=== PATIENT | female | born 1945 | race Caucasian/White ===

== ENCOUNTER → 2016-12-25 | Outpatient (REF) | payer MEDICARE, BC ==
[2016-12-25 20:34] LABS: ALBUMIN 4.4 GM/DL (3.2-5.2); ALBUMIN/GLOBULIN RATIO 1.38 (1.00-1.93); ALKALINE PHOSPHATASE 71 U/L (45-117); ALT/SGPT 29 U/L (12-78); ANION GAP 9 MEQ/L (8-16); AST/SGOT 20 U/L (15-37); BILIRUBIN,TOTAL 0.4 MG/DL (0.2-1.0); BLOOD UREA NITROGEN 16 MG/DL (7-18); CALCIUM LEVEL 9.5 MG/DL (8.8-10.2); CARBON DIOXIDE LEVEL 30 MEQ/L (21-32); CHLORIDE LEVEL 102 MEQ/L (98-107); CHOLESTEROL LEVEL 290 MG/DL (<200); CREATININE FOR GFR 0.67 MG/DL (0.55-1.02); FREE T4 1.16 NG/DL (0.76-1.46); GLOMERULAR FILTRATION RATE > 60.0 (>39); GLUCOSE, FASTING 77 MG/DL (83-110); POTASSIUM SERUM 4.2 MEQ/L (3.5-5.1); SODIUM LEVEL 141 MEQ/L (136-145); TOTAL PROTEIN 7.6 GM/DL (6.4-8.2); TRIGLYCERIDES LEVEL 111 MG/DL (<150)
[2016-12-25 20:43] LABS: MEAN CORPUSCULAR HEMOGLOBIN 31.4 pg (27.0-33.0); MEAN CORPUSCULAR HGB CONC 33.4 g/dl (32.0-36.5); MEAN CORPUSCULAR VOLUME 94.1 fl (80.0-96.0); WHITE BLOOD COUNT 10.1 K/mm3 (4.0-10.0)
== END ==
LOC: M SFHCADAM 16:06
PROVIDERS: ATTEND Family Medicine
DX: F32.9 Major depressive disorder, single episode, unspecified (principal); I11.9 Hypertensive heart disease without heart failure; R00.2 Palpitations; E78.2 Mixed hyperlipidemia
CPT/HCPCS: 80053; 80061; 83735; 84439; 84443; 85027; 93005; G0463

== ENCOUNTER → 2017-09-13 | Outpatient (REF) | payer MEDICARE, BC ==
[2017-09-13 14:32] LABS: MEAN CORPUSCULAR HEMOGLOBIN 31.5 pg (27.0-33.0); MEAN CORPUSCULAR VOLUME 95.7 fl (80.0-96.0); PLATELET COUNT, AUTOMATED 261 10^3/uL (150-450); RED CELL DISTRIBUTION WIDTH 13.9 % (11.5-14.5); WHITE BLOOD COUNT 8.7 10^3/uL (4.0-10.0)
[2017-09-13 14:45] LABS: ALBUMIN 3.8 GM/DL (3.2-5.2); ALBUMIN/GLOBULIN RATIO 1.52 (1.00-1.93); ALKALINE PHOSPHATASE 61 U/L (45-117); ALT/SGPT 30 U/L (12-78); ANION GAP 6 MEQ/L (8-16); AST/SGOT 19 U/L (7-37); BILIRUBIN,TOTAL 0.4 MG/DL (0.2-1.0); BLOOD UREA NITROGEN 16 MG/DL (7-18); CALCIUM LEVEL 9.4 MG/DL (8.8-10.2); CARBON DIOXIDE LEVEL 32 MEQ/L (21-32); CHLORIDE LEVEL 105 MEQ/L (98-107); CHOLESTEROL LEVEL 265 MG/DL (<200); CREATININE FOR GFR 0.72 MG/DL (0.55-1.02); GLOMERULAR FILTRATION RATE > 60.0 (>39); GLUCOSE, FASTING 82 MG/DL (83-110); POTASSIUM SERUM 4.5 MEQ/L (3.5-5.1); SODIUM LEVEL 143 MEQ/L (136-145); TOTAL PROTEIN 6.3 GM/DL (6.4-8.2); TRIGLYCERIDES LEVEL 94 MG/DL (<150)
== END ==
LOC: M SFHCADAM 07:57
PROVIDERS: ATTEND Family Medicine
DX: K21.0 Gastro-esophageal reflux disease with esophagitis (principal); F32.9 Major depressive disorder, single episode, unspecified; I11.9 Hypertensive heart disease without heart failure; E78.2 Mixed hyperlipidemia; E55.9 Vitamin D deficiency, unspecified

== ENCOUNTER → 2017-10-14 | Outpatient (CLI) | payer MEDICARE, BC | LOC: M WHC 12:57 | DX: Z12.31 Encounter for screening mammogram for malignant neoplasm of breast (principal) | CPT/HCPCS: G0202 ==

== ENCOUNTER → 2018-03-31 | Outpatient (REF) | payer MEDICARE, BC ==
[2018-03-31 12:51] LABS: CHOLESTEROL LEVEL 235 MG/DL (<200); CHOLESTEROL RISK RATIO 2.526 (<5); HDL CHOLESTEROL 93 MG/DL (>40); LDL CHOLESTEROL 117.6 MG/DL (<100); NON-HDL-C 142 MG/DL; TRIGLYCERIDES LEVEL 122 MG/DL (<150)
== END ==
LOC: M SFHCADAM 08:13
DX: E78.2 Mixed hyperlipidemia (principal)
CPT/HCPCS: 80061

== ENCOUNTER → 2018-06-02 | Outpatient (CLI) | payer MEDICARE, BC | LOC: M RAD 12:52 | DX: R14.0 Abdominal distension (gaseous) (principal) | CPT/HCPCS: 76856 ==

== ENCOUNTER → 2018-06-03 | Outpatient (CLI) | payer MEDICARE, BC | LOC: M RAD 07:16 | DX: K76.89 Other specified diseases of liver (principal); N28.1 Cyst of kidney, acquired; R14.0 Abdominal distension (gaseous); R14.3 Flatulence | CPT/HCPCS: 76700 ==

== ENCOUNTER → 2018-07-19 | Outpatient (CLI) | payer MEDICARE, BC ==
[~2018-07-19] MED LIST: GASTROGRAFIN SOLUTION 30ML (Q9963) As Ordered; ISOVUE-370 76% 100ML VIAL (Q9967) As Ordered
== END ==
LOC: M RAD 13:24
DX: R10.13 Epigastric pain (principal); R14.0 Abdominal distension (gaseous); R63.4 Abnormal weight loss
CPT/HCPCS: Q9963

== ENCOUNTER → 2018-07-26 | Outpatient (CLI) | payer MEDICARE, BC ==
[~2018-07-26] MED LIST changes: -GASTROGRAFIN SOLUTION 30ML (Q9963) As Ordered
== END ==
LOC: M RAD 09:20
DX: R91.1 Solitary pulmonary nodule (principal)
CPT/HCPCS: Q9967

== ENCOUNTER → 2018-10-03 | Outpatient (REF) | payer MEDICARE, BC ==
[2018-10-03 10:32] LABS: HEMATOCRIT 41.1 % (36.0-47.0); HEMOGLOBIN 13.5 g/dl (12.0-15.5); MEAN CORPUSCULAR HEMOGLOBIN 31.3 pg (27.0-33.0); MEAN CORPUSCULAR HGB CONC 32.8 g/dl (32.0-36.5); MEAN CORPUSCULAR VOLUME 95.1 fl (80.0-96.0); PLATELET COUNT, AUTOMATED 220 10^3/uL (150-450); RED BLOOD COUNT 4.32 10^6/uL (4.00-5.40); WHITE BLOOD COUNT 8.6 10^3/uL (4.0-10.0)
[2018-10-03 10:53] LABS: ALBUMIN 3.7 GM/DL (3.2-5.2); ALT/SGPT 25 U/L (12-78); BILIRUBIN,TOTAL 0.6 MG/DL (0.2-1.0); BLOOD UREA NITROGEN 21 MG/DL (7-18); CALCIUM LEVEL 8.8 MG/DL (8.8-10.2); CARBON DIOXIDE LEVEL 29 MEQ/L (21-32); CHLORIDE LEVEL 103 MEQ/L (98-107); CHOLESTEROL LEVEL 239 MG/DL (<200); CHOLESTEROL RISK RATIO 2.366 (<5); CREATININE FOR GFR 0.64 MG/DL (0.55-1.30); GLOMERULAR FILTRATION RATE > 60.0 (>39); GLUCOSE, FASTING 84 MG/DL (70-100); HDL CHOLESTEROL 101 MG/DL (>40); LDL CHOLESTEROL 127 MG/DL (<100); NON-HDL-C 138 MG/DL; POTASSIUM SERUM 4.2 MEQ/L (3.5-5.1); SODIUM LEVEL 139 MEQ/L (136-145); TOTAL PROTEIN 6.5 GM/DL (6.4-8.2); TRIGLYCERIDES LEVEL 55 MG/DL (<150)
== END ==
LOC: M SFHCADAM 08:17
PROVIDERS: ATTEND Family Medicine
DX: R10.13 Epigastric pain (principal); E78.2 Mixed hyperlipidemia

== ENCOUNTER → 2019-01-11 | Outpatient (CLI) | payer MEDICARE, BC ==
[2019-01-11 12:22] LABS: BLOOD UREA NITROGEN 16 MG/DL (7-18); GLOMERULAR FILTRATION RATE > 60.0 (>39)
== END ==
LOC: M LAB 11:19
PROVIDERS: ATTEND Physician Assistant
DX: R91.1 Solitary pulmonary nodule (principal)

== ENCOUNTER → 2019-01-20 | Outpatient (CLI) | payer MEDICARE, BC ==
[~2019-01-20] MED LIST changes: -ISOVUE-370 76% 100ML VIAL (Q9967) As Ordered; +ISOVUE-370 76% 100ML VIAL (Q9967) As Ordered ONE
--- NOTE | 2019-01-20 12:48 | REP ---
CT CHEST WITH IV CONTRAST: HISTORY: Lower lobe pulmonary nodule. Comparison chest CT study July 26, 2018. Comparison chest x-ray March 02, 2006. The prior chest CT study showed a 4 mm noncalcified nodule in the left lower lobe. 100 mL of intravenous Isovue [address] FINDINGS: There is good opacification of the aorta and pulmonary arterial tree. There is no CT evidence of pulmonary embolus, aortic aneurysm, or dissection. The thoracic aorta is tortuous. Vascular calcifications noted including left coronary artery vascular calcification. There is no evidence of pleural effusion or pericardial effusion. No hilar or mediastinal mass or adenopathy is observed. Mild heterogeneous enlargement right lobe of the thyroid is again seen unchanged. The previously noted 4 mm noncalcified pulmonary nodule in the left lower lobe is again seen and is unchanged. There are two other tiny 2-3 mm nodular opacities, one in the lingula and the other in the left upper lobe. These are visible in retrospect and are unchanged as well. No new pulmonary nodule is appreciated. No infiltrate is seen. There are multiple small hepatic cysts again noted unchanged. IMPRESSION: Stable small pulmonary nodules. Repeat CT study recommended 1 year if the patient is considered at increased risk of lung carcinoma. Electronically Signed by Evan Jeffries MD 01/20/2019 01:39 P
== END ==
LOC: M RAD 09:25
PROVIDERS: ATTEND Physician Assistant
DX: R91.1 Solitary pulmonary nodule (principal)
CPT/HCPCS: 71260; Q9967

== ENCOUNTER → 2019-03-16 | Outpatient (REF) | payer MEDICARE, BC ==
[2019-03-16 13:54] LABS: CHOLESTEROL RISK RATIO 3.011 (<5)
== END ==
LOC: M SFHCADAM 08:03
PROVIDERS: ATTEND Family Medicine
DX: E78.2 Mixed hyperlipidemia (principal)

== ENCOUNTER → 2019-04-17 | Outpatient (CLI) | payer MEDICARE, BC ==
--- NOTE | 2019-04-17 14:25 | REPMRS ---
Patient History The patient states she has not had a clinical breast exam in over a year. Patient is postmenopausal and has history of squamous cell skin cancer at age 51. Family history of breast cancer at age 68 in mother, breast cancer at age 57 in sister, prostate cancer at age 50 or over in brother, prostate cancer at age 45 in son, prostate cancer at age 50 or over in father, breast cancer at age 50 or over in maternal aunt, prostate cancer at age 50 or over in brother. Taking unspecified hormones for 19 years. 3D TOMOSYNTHESIS WAS PERFORMED. [facility] lifetime risk for breast cancer is 10.5%. Digital Woman Screen Mammo: April 17, 2019 - Exam #: [id number] Bilateral CC and MLO view(s) were taken. Technologist: Faustina Ortiz, Technologist Prior study comparison: October 14, 2017, digital woman screen mammo performed at [facility]. August 26, 2016, digital woman screen mammo performed at [facility]. FINDINGS: There are scattered fibroglandular densities. There has been no change in the appearance of the mammogram from the prior studies. There is a mild amount of residual fibroglandular tissue which is fairly symmetric. There is no interval development of dominant mass, architectural distortion, or clustered microcalcification suggestive of malignancy. Assessment: BI-RADS/ACR category 1 mammogram. Negative Mammogram. Recommendation Routine screening mammogram in 1 year (for women over age 40). This mammogram was interpreted with the aid of an FDA-approved computer-aided dectection system. Electronically Signed By: Maninder Conrad MD 04/17/19 [id number]
== END ==
LOC: M WHC 13:19
PROVIDERS: ATTEND Family Medicine
DX: Z12.31 Encounter for screening mammogram for malignant neoplasm of breast (principal); Z78.0 Asymptomatic menopausal state; Z85.828 Personal history of other malignant neoplasm of skin; Z80.3 Family history of malignant neoplasm of breast; Z79.818 Long term (current) use of other agents affecting estrogen receptors and estrogen levels

== ENCOUNTER → 2019-09-19 | Outpatient (REF) | payer MEDICARE, BC ==
[2019-09-19 13:14] LABS: ALBUMIN 3.6 GM/DL (3.2-5.2); ALT/SGPT 38 U/L (12-78); BILIRUBIN,TOTAL 0.9 MG/DL (0.2-1.0); BLOOD UREA NITROGEN 17 MG/DL (7-18); CALCIUM LEVEL 9.3 MG/DL (8.8-10.2); CARBON DIOXIDE LEVEL 29 MEQ/L (21-32); CHLORIDE LEVEL 105 MEQ/L (98-107); CHOLESTEROL LEVEL 246 MG/DL (<200); CHOLESTEROL RISK RATIO 2.963 (<5); CREATININE FOR GFR 0.64 MG/DL (0.55-1.30); FREE T4 0.96 NG/DL (0.76-1.46); GLOMERULAR FILTRATION RATE > 60.0 (>39); GLUCOSE, FASTING 72 MG/DL (70-100); HDL CHOLESTEROL 83 MG/DL (>40); LDL CHOLESTEROL 135 MG/DL (<100); NON-HDL-C 163 MG/DL; POTASSIUM SERUM 4.5 MEQ/L (3.5-5.1); SODIUM LEVEL 142 MEQ/L (136-145); TOTAL 25(OH) VITAMIN D 52.4 NG/ML (30.0-100.0); TOTAL PROTEIN 6.6 GM/DL (6.4-8.2); TRIGLYCERIDES LEVEL 141 MG/DL (<150)
== END ==
LOC: M SFHCADAM 08:20
PROVIDERS: ATTEND Family Medicine
DX: E78.2 Mixed hyperlipidemia (principal); E55.9 Vitamin D deficiency, unspecified

== ENCOUNTER → 2019-10-05 | Outpatient (CLI) | payer MEDICARE, BC ==
--- NOTE | 2019-10-05 19:08 | REP ---
Urinary tract sonogram: History: Renal cyst on CT. Comparison: Comparison CT study July 19, 2018. Findings: Scanning at the level of the urinary bladder shows no abnormality. Renal cortical echogenicity pattern is normal bilaterally and contours are smooth. There is no evidence of hydronephrosis, mass, or calculus in either kidney. The right kidney measures 10.9 x 5.6 x 5.1 cm. Left renal dimensions are 11.1 x 5.3 x 6.3 cm. There is a cyst in the lower pole left kidney measuring 3.8 x 3.4 x 3.4 cm as seen on the comparison CT study. Impression: 3.8 cm simple cyst lower pole left kidney. Otherwise negative urinary tract sonography. Electronically Signed by Evan Jeffries MD 10/05/2019 03:56 P
== END ==
LOC: M RAD 13:49
PROVIDERS: ATTEND Family Medicine
DX: N28.1 Cyst of kidney, acquired (principal)

== ENCOUNTER → 2019-10-24 | Outpatient (CLI) | payer MEDICARE, BC ==
--- NOTE | 2019-10-26 13:21 | DEXA ---
AP SPINE L1 - L4 0.889 -2.5 -0.7 LT FEMUR TOTAL 0.856 -1.2 0.6 LT NECK 0.713 -2.3 -0.4 RT FEMUR TOTAL 0.879 -1.0 0.7 RT NECK 0.749 -2.1 -0.1 TOTAL BODY TOTAL OTHER COMMENTS: There is low bone density of the hips. There is osteoporosis of the spine. The density of the spine has decreased 8.4% since the initial exam on 03/04/1999. The spine density has decreased 6.1% since the most recent exam on 06/11/2014. The density of the left hip has decreased 18.6% since the initial exam on 03/04/1999. The density of the left hip has decreased 7.1% since the most recent exam on 06/11/2014. The density of the right hip has decreased 14.2% since the initial exam on 03/04/1999. The density of the right hip has decreased 3.9% since the most recent exam on 06/11/2014. FOLLOW-UP: Recommendation for the next bone density exam: 2 years. PIYUSH
== END ==
LOC: M WHC 09:51
PROVIDERS: ATTEND Family Medicine
DX: M81.0 Age-related osteoporosis without current pathological fracture (principal)

== ENCOUNTER → 2020-03-14 | Outpatient (CLI) | payer MEDICARE, BC ==
[2020-03-14 09:29] LABS: BLOOD UREA NITROGEN 19 MG/DL (7-18); CREATININE FOR GFR 0.68 MG/DL (0.55-1.30); GLOMERULAR FILTRATION RATE > 60.0 (>39)
== END ==
LOC: M LAB 08:30
PROVIDERS: ATTEND Physician Assistant
DX: R91.1 Solitary pulmonary nodule (principal)

== ENCOUNTER → 2020-03-14 | Outpatient (CLI) | payer MEDICARE, BC ==
[2020-03-14 09:29] LABS: BLOOD UREA NITROGEN 20 MG/DL (7-18); CREATININE FOR GFR 0.69 MG/DL (0.55-1.30); GLOMERULAR FILTRATION RATE > 60.0 (>39)
== END ==
LOC: M LAB 08:25
PROVIDERS: ATTEND Physician Assistant Surgical
DX: Z00.00 Encounter for general adult medical examination without abnormal findings (principal)

== ENCOUNTER → 2020-03-18 | Outpatient (CLI) | payer MEDICARE, BC ==
[~2020-03-18] MED LIST changes: -ISOVUE-370 76% 100ML VIAL (Q9967) As Ordered ONE; +ISOVUE-370 76% 100ML VIAL As Ordered ONE
--- NOTE | 2020-03-18 15:24 | REP ---
REASON: Followup pulmonary nodule. All priors were reviewed, the latest of which is dated 01/20/2019. CONTRAST: 100 mL Isovue 370. The mediastinum and pulmonary hilar are unchanged. The imaged upper abdomen and imaged osseous structures are unchanged. Evaluation of the lung field shows stable and lingular left lower lobe nodules. No new abnormal nodules, masses or opacities have developed. IMPRESSION: Stable CT examination of the chest. Yearly CT screening examination of the lungs is recommended provided the patient's risk factors remain high. Electronically Signed by Montez Hernández DO 03/18/2020 05:13 P
== END ==
LOC: M RAD 13:18
PROVIDERS: ATTEND Internal Medicine Gastroenterology
DX: R91.8 Other nonspecific abnormal finding of lung field (principal)
CPT/HCPCS: 71260; Q9967

== ENCOUNTER → 2020-06-26 | Outpatient (CLI) | payer MEDICARE, BC ==
--- NOTE | 2020-06-26 15:15 | REPMRS ---
Patient History The patient states she has not had a clinical breast exam in over a year. Family history of breast cancer at age 68 in mother, breast cancer at age 57 in sister, prostate cancer at age 50 or over in brother, prostate cancer at age 45 in son, prostate cancer at age 50 or over in father, breast cancer at age 50 or over in maternal aunt, prostate cancer at age 50 or over in brother. Taking unspecified hormones for 19 years. 3D TOMOSYNTHESIS WAS PERFORMED. The [facility] lifetime risk for breast cancer is 9.6%. VOLPARA DENSITY B. Digital Woman Screen Mammo: June 26, 2020 - Exam #: [id number] Bilateral CC and MLO view(s) were taken. Technologist: Seema Boneologist Prior study comparison: April 17, 2019, bilateral digital woman screen mammo performed at [facility]. October 14, 2017, digital woman screen mammo performed at [facility]. FINDINGS: There are scattered fibroglandular densities. There has been no change in the appearance of the mammogram from the prior studies. There is a mild amount of residual fibroglandular tissue which is fairly symmetric. There is no interval development of dominant mass, architectural distortion, or clustered microcalcification suggestive of malignancy. Assessment: BI-RADS/ACR category 1 mammogram. Negative Mammogram. Recommendation Routine screening mammogram in 1 year (for women over age 40). This mammogram was interpreted with the aid of an FDA-approved computer-aided dectection system. Electronically Signed By: Maninder Conrad MD 06/26/20 [id number]
== END ==
LOC: M WHC 13:26
PROVIDERS: ATTEND Family Medicine
DX: Z12.31 Encounter for screening mammogram for malignant neoplasm of breast (principal)

== ENCOUNTER → 2020-10-23 | Outpatient (REF) | payer MEDICARE, BC ==
[2020-10-23 12:56] LABS: HEMATOCRIT 46.7 % (36.0-47.0); HEMOGLOBIN 15.3 g/dl (12.0-15.5); MEAN CORPUSCULAR HEMOGLOBIN 31.4 pg (27.0-33.0); MEAN CORPUSCULAR HGB CONC 32.8 g/dl (32.0-36.5); MEAN CORPUSCULAR VOLUME 95.9 fl (80.0-96.0); PLATELET COUNT, AUTOMATED 263 10^3/uL (150-450); RED BLOOD COUNT 4.87 10^6/uL (4.00-5.40); WHITE BLOOD COUNT 8.7 10^3/uL (4.0-10.0)
[2020-10-23 13:34] LABS: ALBUMIN 4.1 GM/DL (3.2-5.2); ALT/SGPT 30 U/L (12-78); BILIRUBIN,TOTAL 0.4 MG/DL (0.2-1.0); BLOOD UREA NITROGEN 23 MG/DL (7-18); CALCIUM LEVEL 9.4 MG/DL (8.8-10.2); CARBON DIOXIDE LEVEL 30 MEQ/L (21-32); CHLORIDE LEVEL 108 MEQ/L (98-107); CHOLESTEROL LEVEL 265 MG/DL (<200); CHOLESTEROL RISK RATIO 2.789 (<5); CREATININE FOR GFR 0.67 MG/DL (0.55-1.30); FREE T4 1.05 NG/DL (0.76-1.46); GLOMERULAR FILTRATION RATE > 60.0 (>39); GLUCOSE, FASTING 78 MG/DL (70-100); HDL CHOLESTEROL 95 MG/DL (>40); LDL CHOLESTEROL 144 MG/DL (<100); NON-HDL-C 170 MG/DL; POTASSIUM SERUM 4.9 MEQ/L (3.5-5.1); SODIUM LEVEL 142 MEQ/L (136-145); TOTAL PROTEIN 6.8 GM/DL (6.4-8.2); TRIGLYCERIDES LEVEL 129 MG/DL (<150)
[2020-10-23 13:37] LABS: TOTAL 25(OH) VITAMIN D 57.8 NG/ML (30.0-100.0)
== END ==
LOC: M SFHCADAM 08:08
PROVIDERS: ATTEND Family Medicine
DX: I49.9 Cardiac arrhythmia, unspecified (principal); E78.2 Mixed hyperlipidemia; E55.9 Vitamin D deficiency, unspecified

== ENCOUNTER → 2020-11-07 | Outpatient (REF) | payer MEDICARE, BC ==
[2020-11-07 13:03] LABS: APPEARANCE, URINE CLEAR (CLEAR); BACTERIA, URINE AUTO NEGATIVE (NEGATIVE); BILIRUBIN, URINE AUTO NEGATIVE (NEGATIVE); BLOOD, URINE BLOOD NEGATIVE (NEGATIVE); COLOR, URINE STRAW (YELLOW); GLUCOSE, URINE (UA) AUTO NEGATIVE (NEGATIVE); KETONE, URINE AUTO NEGATIVE (NEGATIVE); LEUKOCYTE ESTERASE, URINE AUTO 2+ (NEGATIVE); NITRITE, URINE AUTO NEGATIVE (NEGATIVE); PROTEIN, URINE AUTO NEGATIVE (NEGATIVE); RBC, URINE AUTO 1 /HPF (0-3); SPECIFIC GRAVITY URINE AUTO 1.006 (1.002-1.035); SQUAMOUS EPITHELIAL CELL UR AU 1 /HPF (0-6); UROBILINOGEN, URINE AUTO 0.2 mg/dL (0.0-2.0); WBC, URINE AUTO 5 /HPF (0-3)
[2020-11-07 13:30] LABS: BLOOD UREA NITROGEN 26 MG/DL (7-18); CALCIUM LEVEL 9.5 MG/DL (8.8-10.2); CARBON DIOXIDE LEVEL 31 MEQ/L (21-32); CHLORIDE LEVEL 106 MEQ/L (98-107); CREATININE FOR GFR 0.69 MG/DL (0.55-1.30); GLOMERULAR FILTRATION RATE > 60.0 (>39); GLUCOSE, FASTING 70 MG/DL (70-100); POTASSIUM SERUM 4.9 MEQ/L (3.5-5.1); SODIUM LEVEL 142 MEQ/L (136-145)
[2020-11-07 13:38] LABS: CORTISOL AM 9.4 UG/DL (4.3-22.4)
== END ==
LOC: M SFHCADAM 07:46
PROVIDERS: ATTEND Family Medicine
DX: E27.8 Other specified disorders of adrenal gland (principal); M81.0 Age-related osteoporosis without current pathological fracture; R91.1 Solitary pulmonary nodule; R39.15 Urgency of urination

== ENCOUNTER → 2021-02-10 | Outpatient (REF) | payer MEDICARE, BC ==
[2021-02-10 18:05] LABS: BLOOD UREA NITROGEN 24 MG/DL (7-18); CALCIUM LEVEL 10.2 MG/DL (8.8-10.2); CARBON DIOXIDE LEVEL 30 MEQ/L (21-32); CHLORIDE LEVEL 100 MEQ/L (98-107); CREATININE FOR GFR 0.79 MG/DL (0.55-1.30); GLOMERULAR FILTRATION RATE > 60.0 (>39); GLUCOSE, FASTING 73 MG/DL (70-100); POTASSIUM SERUM 4.7 MEQ/L (3.5-5.1); SODIUM LEVEL 137 MEQ/L (136-145)
== END ==
LOC: M SFHCADAM 13:12
PROVIDERS: ATTEND Family Medicine
DX: I11.9 Hypertensive heart disease without heart failure (principal)

== ENCOUNTER → 2021-05-08 | Outpatient (CLI) | payer MEDICARE, BC ==
[2021-05-08 13:24] LABS: BLOOD UREA NITROGEN 18 MG/DL (7-18); CALCIUM LEVEL 9.6 MG/DL (8.8-10.2); CARBON DIOXIDE LEVEL 27 MEQ/L (21-32); CHLORIDE LEVEL 102 MEQ/L (98-107); CREATININE FOR GFR 0.73 MG/DL (0.55-1.30); GLOMERULAR FILTRATION RATE > 60.0 (>39); GLUCOSE, FASTING 82 MG/DL (70-100); POTASSIUM SERUM 4.4 MEQ/L (3.5-5.1); SODIUM LEVEL 137 MEQ/L (136-145)
== END ==
LOC: M LAB 11:46
PROVIDERS: ATTEND Family Medicine
DX: I11.9 Hypertensive heart disease without heart failure (principal)

== ENCOUNTER → 2021-05-12 | Outpatient (CLI) | payer MEDICARE, BC ==
--- NOTE | 2021-05-12 16:50 | REP ---
INDICATION: LUNG NODULE. COMPARISON: 03/18/2020, 01/20/2019 TECHNIQUE: Bolus of 75 mL Isovue 370 scanning through the chest with both coronal and sagittal reconstructions provided. FINDINGS: The lung zaragoza are well inflated. A tiny left lower lobe left upper lobe and lingular nodules are unchanged from the previous 2 studies. Minor dependent atelectatic changes are seen. The right lung shows no definite nodules or masses no calcified pleural plaque, pleural based mass, acute infiltrate or pneumothorax. Heart not enlarged. Some scattered low densities in the liver again noted and unchanged consistent with small a P[place] cysts. No biliary dilatation. That portion of gallbladder, pancreas, the spleen and adrenal glands were unremarkable. Upper poles kidneys intact stomach with small hiatal hernia. Heart not grossly enlarged. The aorta is calcified at the arch but without aneurysm. A few scattered subcentimeter nodes in the mediastinum, hilar regions, axilla and supraclavicular region, stable. There are no compression deformities in the spine. Visualized clavicles, ribs, shoulders and paraspinal regions are unremarkable. IMPRESSION: 1. Stable CT chest with multiple small left pulmonary nodules. The patient is at risk for development of lung carcinoma annual lung CT would be recommended. 2. Some underlying COPD and fibrosis, stable. 3. The aorta is without aneurysm or dissection the main, right and left pulmonary arteries are without filling defects in the mediastinum. Small hiatal hernia noted. 4. No mediastinal or hilar adenopathy. No axillary supraclavicular mass. Upper abdomen shows only scattered hepatic cysts but is otherwise unremarkable. <Electronically signed by José Miguel Murray > 05/12/21 [id number]
== END ==
LOC: M RAD 14:46
PROVIDERS: ATTEND Family Medicine
DX: R91.1 Solitary pulmonary nodule (principal)
CPT/HCPCS: 71260; Q9967

== ENCOUNTER 2021-06-30 14:43 | Outpatient (CLI) | payer MEDICARE, BC ==
[~2021-06-30] VITALS: Ht 149.9 cm; Wt 74.4 kg
[2021-06-30] MEDS ORDERED: ZOLEDRONIC ACID 5 MG in IV 1 EA IV ONE (15:00)
[2021-06-30 15:26] VITALS: BP 129/78
[2021-06-30 15:45] VITALS: BP 155/86
== END 2021-06-30 15:45 | disposition home or self-care (01) ==
LOC: M INFU 14:43
PROVIDERS: ATTEND Family Medicine
DX: M81.0 Age-related osteoporosis without current pathological fracture (principal); Z88.0 Allergy status to penicillin; Z88.1 Allergy status to other antibiotic agents
CPT/HCPCS: 96365; J3489

== ENCOUNTER → 2021-08-20 | Outpatient (CLI) | payer MEDICARE, BC ==
--- NOTE | 2021-08-20 14:09 | REPMRS ---
Patient History The patient states she has not had a clinical breast exam in over a year. Family history of breast cancer at age 68 in mother, breast cancer at age 57 in sister, prostate cancer at age 50 or over in brother, prostate cancer at age 45 in son, prostate cancer at age 50 or over in father, breast cancer at age 50 or over in maternal aunt, prostate cancer at age 50 or over in brother. Taking unspecified hormones for 19 years. Tomosynthesis is performed. Volpara breast density is b. [facility] lifetime risk of breast cancer 8.7%. Patient states no breast complaints today. Patient has signed MRS History Sheet. Digital Woman Screen Mammo: August 20, 2021 - Exam #: [id number] Bilateral CC and MLO view(s) were taken. Technologist: Seema Boneologist Prior study comparison: June 26, 2020, bilateral digital woman screen mammo performed at [facility]. April 17, 2019, bilateral digital woman screen mammo performed at [facility]. FINDINGS: There are scattered fibroglandular densities. There has been no change in the appearance of the mammogram from the prior studies. There is a mild amount of residual fibroglandular tissue which is fairly symmetric. There is no interval development of dominant mass, architectural distortion, or clustered microcalcification suggestive of malignancy. Assessment: BI-RADS/ACR category 1 mammogram. Negative Mammogram. Recommendation Routine screening mammogram in 1 year (for women over age 40). This mammogram was interpreted with the aid of an FDA-approved computer-aided dectection system. Electronically Signed By: Maninder Conrad MD 08/20/21 [id number]
== END ==
LOC: M WHC 11:28
PROVIDERS: ATTEND Family Medicine
DX: Z12.31 Encounter for screening mammogram for malignant neoplasm of breast (principal)

== ENCOUNTER → 2021-10-22 | Outpatient (REF) | payer MEDICARE, BC ==
[2021-10-22 12:34] LABS: HEMATOCRIT 46.6 % (36.0-47.0); HEMOGLOBIN 15.2 g/dl (12.0-15.5); MEAN CORPUSCULAR HEMOGLOBIN 31.5 pg (27.0-33.0); MEAN CORPUSCULAR HGB CONC 32.6 g/dl (32.0-36.5); MEAN CORPUSCULAR VOLUME 96.7 fl (80.0-96.0); PLATELET COUNT, AUTOMATED 242 10^3/uL (150-450); RED BLOOD COUNT 4.82 10^6/uL (4.00-5.40); WHITE BLOOD COUNT 9.2 10^3/uL (4.0-10.0)
[2021-10-22 13:39] LABS: ALT/SGPT 33 U/L (12-78); BILIRUBIN,TOTAL 0.4 MG/DL (0.2-1.0); BLOOD UREA NITROGEN 19 MG/DL (7-18); CALCIUM LEVEL 8.9 MG/DL (8.8-10.2); CARBON DIOXIDE LEVEL 30 MEQ/L (21-32); CHLORIDE LEVEL 103 MEQ/L (98-107); CHOLESTEROL LEVEL 235 MG/DL (<200); CREATININE FOR GFR 0.77 MG/DL (0.55-1.30); GLOMERULAR FILTRATION RATE > 60.0 (>39); GLUCOSE, FASTING 78 MG/DL (70-100); HDL CHOLESTEROL 92 MG/DL (>40); POTASSIUM SERUM 4.4 MEQ/L (3.5-5.1); SODIUM LEVEL 137 MEQ/L (136-145); TRIGLYCERIDES LEVEL 120 MG/DL (<150)
[2021-10-22 13:40] LABS: ALBUMIN 3.7 GM/DL (3.2-5.2); CHOLESTEROL RISK RATIO 2.554 (<5); FREE T4 1.07 NG/DL (0.76-1.46); LDL CHOLESTEROL 119 MG/DL (<100); NON-HDL-C 143 MG/DL; TOTAL 25(OH) VITAMIN D 52.1 NG/ML (30.0-100.0); TOTAL PROTEIN 6.6 GM/DL (6.4-8.2)
== END ==
LOC: M SFHCADAM 08:11
PROVIDERS: ATTEND Family Medicine
DX: E78.2 Mixed hyperlipidemia (principal); F32.9 Major depressive disorder, single episode, unspecified; M81.0 Age-related osteoporosis without current pathological fracture

== ENCOUNTER → 2022-05-15 | Outpatient (CLI) | payer MEDICARE, BC | LOC: M RAD 10:08 | PROVIDERS: ATTEND Family Medicine | DX: Z12.2 Encounter for screening for malignant neoplasm of respiratory organs (principal); R91.8 Other nonspecific abnormal finding of lung field ==

== ENCOUNTER → 2022-06-25 | Outpatient (REF) | payer MEDICARE, BC ==
[2022-06-25 14:03] LABS: BLOOD UREA NITROGEN 20 MG/DL (7-18); CALCIUM LEVEL 9.5 MG/DL (8.8-10.2); CARBON DIOXIDE LEVEL 25 MEQ/L (21-32); CHLORIDE LEVEL 105 MEQ/L (98-107); CREATININE FOR GFR 0.77 MG/DL (0.55-1.30); GLOMERULAR FILTRATION RATE > 60.0 (>39); GLUCOSE, FASTING 79 MG/DL (70-100); POTASSIUM SERUM 4.3 MEQ/L (3.5-5.1); SODIUM LEVEL 136 MEQ/L (136-145)
== END ==
LOC: M SFHCADAM 09:34
PROVIDERS: ATTEND Family Medicine
DX: I11.9 Hypertensive heart disease without heart failure (principal)

== ENCOUNTER 2022-06-30 14:58 | Outpatient (CLI) | payer MEDICARE, BC ==
[~2022-06-30] VITALS: Ht 149.9 cm; Wt 73.6 kg
[2022-06-30] MEDS ORDERED: ZOLEDRONIC ACID 5 MG in IV 1 EA IV ONE (15:00)
[2022-06-30 15:11] VITALS: BP 160/73
[2022-06-30 15:46] VITALS: BP 138/79
== END 2022-06-30 16:00 | disposition home or self-care (01) ==
LOC: M INFU 14:58
PROVIDERS: ATTEND Family Medicine
DX: M81.0 Age-related osteoporosis without current pathological fracture (principal); Z88.0 Allergy status to penicillin; Z88.8 Allergy status to other drugs, medicaments and biological substances
CPT/HCPCS: 96413; J3489

== ENCOUNTER → 2022-08-07 | Outpatient (REF) | payer MEDICARE, BC | LOC: M LAB REF 19:57 | PROVIDERS: ATTEND Internal Medicine | DX: R10.812 Left upper quadrant abdominal tenderness (principal) ==

== ENCOUNTER → 2022-08-07 | Outpatient (CLI) | payer MEDICARE, BC | LOC: M WUC 15:01 | PROVIDERS: ATTEND Student in an Organized Health Care Education/Training Program | DX: R10.812 Left upper quadrant abdominal tenderness (principal) ==

== ENCOUNTER → 2022-10-27 | Outpatient (REF) | payer MEDICARE, BC ==
[2022-10-27 14:00] LABS: HEMOGLOBIN 15.3 g/dl (12.0-15.5); MEAN CORPUSCULAR HEMOGLOBIN 31.3 pg (27.0-33.0); MEAN CORPUSCULAR HGB CONC 32.6 g/dl (32.0-36.5); MEAN CORPUSCULAR VOLUME 96.1 fl (80.0-96.0); PLATELET COUNT, AUTOMATED 258 10^3/uL (150-450); RED BLOOD COUNT 4.89 10^6/uL (4.00-5.40); WHITE BLOOD COUNT 9.6 10^3/uL (4.0-10.0)
[2022-10-27 14:23] LABS: BLOOD UREA NITROGEN 25 MG/DL (9-23); CALCIUM LEVEL 9.7 MG/DL (8.3-10.6); CARBON DIOXIDE LEVEL 30 MMOL/L (20-31); CHLORIDE LEVEL 101 MMOL/L (98-107); CREATININE FOR GFR 0.78 MG/DL (0.55-1.30); GLOMERULAR FILTRATION RATE > 60.0 (>39); GLUCOSE, FASTING 78 MG/DL (74-106); POTASSIUM SERUM 4.7 MMOL/L (3.5-5.1); SODIUM LEVEL 137 MMOL/L (136-145); VITAMIN B12 LEVEL 647 PG/ML (211-911)
[2022-10-27 14:25] LABS: FOLATE > 24.00 NG/ML (>5.4)
== END ==
LOC: M SFHCADAM 07:57
PROVIDERS: ATTEND Family Medicine
DX: H81.09 Meniere's disease, unspecified ear (principal)

== ENCOUNTER → 2022-11-09 | Outpatient (CLI) | payer MEDICARE, BC | LOC: M WHC 10:42 | PROVIDERS: ATTEND Family Medicine | DX: Z12.31 Encounter for screening mammogram for malignant neoplasm of breast (principal) ==

== ENCOUNTER → 2023-04-28 | Outpatient (REF) | payer MEDICARE, BC ==
[2023-04-28 13:33] LABS: HEMATOCRIT 45.7 % (36.0-47.0); HEMOGLOBIN 15.2 g/dl (12.0-15.5); MEAN CORPUSCULAR HEMOGLOBIN 31.4 pg (27.0-33.0); MEAN CORPUSCULAR HGB CONC 33.3 g/dl (32.0-36.5); MEAN CORPUSCULAR VOLUME 94.4 fl (80.0-96.0); PLATELET COUNT, AUTOMATED 284 10^3/uL (150-450); RED BLOOD COUNT 4.84 10^6/uL (4.00-5.40)
[2023-04-28 13:34] LABS: ALBUMIN 3.8 G/DL (3.2-5.2); ALKALINE PHOSPHATASE 68 U/L (46-116); ALT/SGPT 14 U/L (7.0-40); AST/SGOT 23 U/L (<34); BILIRUBIN,TOTAL 0.6 MG/DL (0.3-1.2); BLOOD UREA NITROGEN 20 MG/DL (9-23); CALCIUM LEVEL 9.3 MG/DL (8.3-10.6); CARBON DIOXIDE LEVEL 28 MMOL/L (20-31); CHLORIDE LEVEL 105 MMOL/L (98-107); CHOLESTEROL LEVEL 233 MG/DL (<200); CHOLESTEROL RISK RATIO 3.16 (<5); CREATININE FOR GFR 0.67 MG/DL (0.55-1.30); GLOMERULAR FILTRATION RATE > 60.0 (>39); GLUCOSE, FASTING 81 MG/DL (74-106); HDL CHOLESTEROL 73.6 MG/DL (>40); LDL CHOLESTEROL 136.6 MG/DL (<100); NON-HDL-C 159.4 MG/DL; POTASSIUM SERUM 4.5 MMOL/L (3.5-5.1); SODIUM LEVEL 139 MMOL/L (136-145); TOTAL PROTEIN 6.4 G/DL (5.7-8.2); TRIGLYCERIDES LEVEL 114 MG/DL (<150)
[2023-04-28 13:36] LABS: FREE T4 1.05 NG/DL (0.89-1.76); THYROID STIMULATING HORMONE 2.059 uIU/ML (0.55-4.78)
[2023-04-28 13:37] LABS: TOTAL 25(OH) VITAMIN D 67.3 NG/ML (20.0-100.0)
== END ==
LOC: M SFHCADAM 08:02
PROVIDERS: ATTEND Family Medicine
DX: E78.2 Mixed hyperlipidemia (principal); F32.9 Major depressive disorder, single episode, unspecified; M81.0 Age-related osteoporosis without current pathological fracture

== ENCOUNTER → 2023-05-25 | Outpatient (CLI) | payer MEDICARE, BC | LOC: M RAD 13:25 | PROVIDERS: ATTEND Family Medicine | DX: Z12.2 Encounter for screening for malignant neoplasm of respiratory organs (principal); F17.211 Nicotine dependence, cigarettes, in remission ==

== ENCOUNTER → 2023-08-26 | Outpatient (REF) | payer MEDICARE, BC ==
[2023-08-26 14:10] LABS: ALBUMIN 3.8 G/DL (3.2-5.2); ALKALINE PHOSPHATASE 56 U/L (46-116); ALT/SGPT 29 U/L (7.0-40); AST/SGOT 20 U/L (<34); BILIRUBIN,TOTAL 0.5 MG/DL (0.3-1.2); BLOOD UREA NITROGEN 21 MG/DL (9-23); CALCIUM LEVEL 9.5 MG/DL (8.3-10.6); CARBON DIOXIDE LEVEL 28 MMOL/L (20-31); CHLORIDE LEVEL 104 MMOL/L (98-107); CHOLESTEROL LEVEL 216 MG/DL (<200); CHOLESTEROL RISK RATIO 2.71 (<5); CREATININE FOR GFR 0.69 MG/DL (0.55-1.30); GLOMERULAR FILTRATION RATE > 60.0 (>39); GLUCOSE, FASTING 86 MG/DL (74-106); HDL CHOLESTEROL 79.6 MG/DL (>40); LDL CHOLESTEROL 111.2 MG/DL (<100); NON-HDL-C 136.4 MG/DL; POTASSIUM SERUM 4.3 MMOL/L (3.5-5.1); SODIUM LEVEL 140 MMOL/L (136-145); TOTAL PROTEIN 6.6 G/DL (5.7-8.2); TRIGLYCERIDES LEVEL 126 MG/DL (<150)
== END ==
LOC: M SFHCADAM 10:38
PROVIDERS: ATTEND Family Medicine
DX: E78.2 Mixed hyperlipidemia (principal)

== ENCOUNTER 2023-08-30 15:15 | Outpatient (CLI) | payer MEDICARE, BC ==
[~2023-08-30] VITALS: Ht 149.9 cm; Wt 72.7 kg
[2023-08-30 15:25] VITALS: BP 150/88; O2SAT 96
[2023-08-30] MEDS ORDERED: ZOLEDRONIC ACID 5 MG in IV 1 EA IV ONE (15:35)
[2023-08-30 16:20] VITALS: BP 132/89; O2SAT 95
== END 2023-08-30 16:22 ==
LOC: M INFU 15:15
PROVIDERS: ATTEND Family Medicine
DX: M81.0 Age-related osteoporosis without current pathological fracture (principal); Z88.0 Allergy status to penicillin; Z88.8 Allergy status to other drugs, medicaments and biological substances
CPT/HCPCS: 96413; J3489

== ENCOUNTER → 2023-12-03 | Outpatient (CLI) | payer MEDICARE, BC | LOC: M WHC 10:57 | PROVIDERS: ATTEND Family Medicine | DX: Z12.31 Encounter for screening mammogram for malignant neoplasm of breast (principal) ==

== ENCOUNTER → 2024-02-01 | Outpatient (REF) | payer MEDICARE, BC ==
[2024-02-01 18:10] LABS: BASO # 0.1 10^3/uL (0.0-0.2); BASO % 0.8 % (0.0-1.0); EOS # 0.2 10^3/uL (0.0-0.5); EOS % 2.1 % (0.0-3.0); HEMATOCRIT 48.1 % (36.0-47.0); HEMOGLOBIN 15.8 g/dl (12.0-15.5); LYMPH # 3.3 10^3/uL (1.5-5.0); LYMPH % 31.4 % (24.0-44.0); MEAN CORPUSCULAR HEMOGLOBIN 31.7 pg (27.0-33.0); MEAN CORPUSCULAR HGB CONC 32.8 g/dl (32.0-36.5); MEAN CORPUSCULAR VOLUME 96.6 fl (80.0-96.0); MONO % 9.5 % (2.0-8.0); NEUTROPHILS % 55.8 % (36.0-66.0); PLATELET COUNT, AUTOMATED 266 10^3/uL (150-450); RED BLOOD COUNT 4.98 10^6/uL (4.00-5.40); WHITE BLOOD COUNT 10.7 10^3/uL (4.0-10.0)
[2024-02-01 18:50] LABS: ALBUMIN 4.1 G/DL (3.2-5.2); ALKALINE PHOSPHATASE 74 U/L (46-116); ALT/SGPT 28 U/L (7.0-40); AST/SGOT 27 U/L (<34); BILIRUBIN,TOTAL 0.4 MG/DL (0.3-1.2); BLOOD UREA NITROGEN 23 MG/DL (9-23); CALCIUM LEVEL 10.2 MG/DL (8.3-10.6); CARBON DIOXIDE LEVEL 28 MMOL/L (20-31); CHLORIDE LEVEL 102 MMOL/L (98-107); CREATININE FOR GFR 0.67 MG/DL (0.55-1.30); GLOMERULAR FILTRATION RATE > 60.0 (>39); GLUCOSE, FASTING 76 MG/DL (74-106); POTASSIUM SERUM 4.2 MMOL/L (3.5-5.1); SODIUM LEVEL 136 MMOL/L (136-145); TOTAL PROTEIN 7.1 G/DL (5.7-8.2)
[2024-02-01 18:53] LABS: THYROID STIMULATING HORMONE 2.539 uIU/ML (0.55-4.78)
== END ==
LOC: M SFHCADAM 11:29
PROVIDERS: ATTEND Family Medicine
DX: R06.09 Other forms of dyspnea (principal)

== ENCOUNTER → 2024-02-01 | Outpatient (CLI) | payer MEDICARE, BC | LOC: M ADAMS 11:20 | PROVIDERS: ATTEND Family Medicine | DX: R06.09 Other forms of dyspnea (principal) ==

== ENCOUNTER → 2024-05-10 | Outpatient (CLI) | payer MEDICARE, BC | LOC: M RAD 14:48 | PROVIDERS: ATTEND Family Medicine | DX: E04.1 Nontoxic single thyroid nodule (principal) ==

== ENCOUNTER → 2024-08-28 | Outpatient (REF) | payer MEDICARE, BC ==
[2024-08-28 14:06] LABS: HEMATOCRIT 46.8 % (36.0-47.0); HEMOGLOBIN 15.1 g/dl (12.0-15.5); MEAN CORPUSCULAR HEMOGLOBIN 31.5 pg (27.0-33.0); MEAN CORPUSCULAR HGB CONC 32.3 g/dl (32.0-36.5); MEAN CORPUSCULAR VOLUME 97.7 fl (80.0-96.0); PLATELET COUNT, AUTOMATED 254 10^3/uL (150-450); RED BLOOD COUNT 4.79 10^6/uL (4.00-5.40); WHITE BLOOD COUNT 9.3 10^3/uL (4.0-10.0)
[2024-08-28 14:31] LABS: ALBUMIN 3.8 G/DL (3.2-5.2); ALKALINE PHOSPHATASE 59 U/L (35-104); ALT/SGPT 28 U/L (7.0-40); AST/SGOT 20 U/L (<34); BILIRUBIN,TOTAL 0.5 MG/DL (0.3-1.2); BLOOD UREA NITROGEN 16 MG/DL (9-23); CALCIUM LEVEL 9.6 MG/DL (8.3-10.6); CARBON DIOXIDE LEVEL 29 MMOL/L (20-31); CHLORIDE LEVEL 105 MMOL/L (98-107); CHOLESTEROL LEVEL 215 MG/DL (<200); CHOLESTEROL RISK RATIO 2.61 (<5); CREATININE FOR GFR 0.73 MG/DL (0.55-1.30); GLOMERULAR FILTRATION RATE > 60.0 (>32); GLUCOSE, FASTING 69 MG/DL (74-106); HDL CHOLESTEROL 82.1 MG/DL (>40); LDL CHOLESTEROL 105.1 MG/DL (<100); NON-HDL-C 132.9 MG/DL; POTASSIUM SERUM 4.6 MMOL/L (3.5-5.1); SODIUM LEVEL 140 MMOL/L (136-145); TOTAL PROTEIN 6.6 G/DL (5.7-8.2); TRIGLYCERIDES LEVEL 139 MG/DL (<150)
== END ==
LOC: M SFHCADAM 10:18
PROVIDERS: ATTEND Family Medicine
DX: K22.10 Ulcer of esophagus without bleeding (principal); J01.00 Acute maxillary sinusitis, unspecified; E78.2 Mixed hyperlipidemia

== ENCOUNTER 2024-09-05 09:38 | Outpatient (CLI) | payer MEDICARE, BC ==
[~2024-09-05] VITALS: Ht 149.9 cm; Wt 77.3 kg
[2024-09-05 09:45] VITALS: BP 149/82; O2SAT 95
[2024-09-05] MEDS: ZOLEDRONIC ACID 5 MG in IV 1 EA IV ONE (10:03)
[2024-09-05] MEDS ORDERED: VITAMIN D PO (10:13)
[2024-09-05] MEDS ORDERED: MELO15TA28 PO (10:13)
[2024-09-05] MEDS ORDERED: SPIR50TA4 PO (10:13)
[2024-09-05] MEDS ORDERED: ASPI81TA26 PO (10:13)
[2024-09-05] MEDS ORDERED: PREV1CAP PO (10:13)
[2024-09-05] MEDS ORDERED: MYRB25TA PO (10:13)
[2024-09-05] MEDS ORDERED: CALC1TAB42 PO (10:15)
[2024-09-05] MEDS ORDERED: VAGI10TA PV (10:15)
[2024-09-05] MEDS ORDERED: BIOT2500 PO (10:15)
[2024-09-05 10:37] VITALS: BP 152/78; O2SAT 96
== END 2024-09-05 10:40 | disposition home or self-care (01) ==
LOC: M INFU 09:38
PROVIDERS: ATTEND Family Medicine
DX: M81.0 Age-related osteoporosis without current pathological fracture (principal); Z88.0 Allergy status to penicillin; Z88.8 Allergy status to other drugs, medicaments and biological substances
CPT/HCPCS: 96365; J3489

== ENCOUNTER → 2024-09-22 | Outpatient (CLI) | payer MEDICARE, BC ==
[~2024-09-22] MED LIST changes: +ASPI81TA26 PO; +BIOT2500 PO; +CALC1TAB42 PO; -ISOVUE-370 76% 100ML VIAL As Ordered ONE; +MELO15TA28 PO; +MYRB25TA PO; +PREV1CAP PO; +SPIR50TA4 PO; +VAGI10TA PV; +VITAMIN D PO
== END ==
LOC: M RAD 09:37
PROVIDERS: ATTEND Family Medicine
DX: F17.211 Nicotine dependence, cigarettes, in remission (principal)

== ENCOUNTER → 2025-06-07 | Outpatient (REF) | payer MEDICARE, BC ==
[2025-06-07 14:20] LABS: PLATELET COUNT, AUTOMATED 265 10^3/uL (150-450)
[2025-06-07 14:55] LABS: ALT/SGPT 23.0 U/L (7.0-40); AST/SGOT 25.0 U/L (<34); CALCIUM LEVEL 9.5 MG/DL (8.3-10.6); CARBON DIOXIDE LEVEL 26.0 MMOL/L (20-31); CHLORIDE LEVEL 104.0 MMOL/L (98-107); CHOLESTEROL LEVEL 198.0 MG/DL (<200); CHOLESTEROL RISK RATIO 2.42 (<5); CREATININE FOR GFR 0.75 MG/DL (0.55-1.30); GLOMERULAR FILTRATION RATE 79.9 (>32); LDL CHOLESTEROL 95.0 MG/DL (<100); NON-HDL-C 116.2 MG/DL; POTASSIUM SERUM 4.5 MMOL/L (3.5-5.1); SODIUM LEVEL 141.0 MMOL/L (136-145); TRIGLYCERIDES LEVEL 106.0 MG/DL (<150)
[2025-06-07 14:57] LABS: FREE T4 1.2 NG/DL (0.89-1.76); TOTAL 25(OH) VITAMIN D 95.0 NG/ML (20.0-100.0)
== END ==
LOC: M SFHCADAM 08:17
PROVIDERS: ATTEND Family Medicine
DX: F32.9 Major depressive disorder, single episode, unspecified (principal); M81.0 Age-related osteoporosis without current pathological fracture; E04.2 Nontoxic multinodular goiter; I11.9 Hypertensive heart disease without heart failure; E78.2 Mixed hyperlipidemia